=== PATIENT | male | born 1970 | race American Indian/Alaskan Native ===

== ENCOUNTER 2018-11-10 09:32 | Inpatient (IN) | payer BC ==
[2018-11-10 10:19] LABS: Basophils # (Auto) 0.1 K/mm3 (0.0-0.1); Basophils % (Auto) 0.6 % (0.0-1.8); Eosinophils # (Auto) 0.1 K/mm3 (0.0-0.4); Eosinophils % (Auto) 0.5 % (0.0-4.3); Hemoglobin 16.4 gm/dl (11.8-15.2); Lymphocytes # (Auto) 2.5 K/mm3 (1.2-5.4); Lymphocytes % (Auto) 21.5 % (13.4-35.0); Mean Corpuscular HGB Conc 34 % (32-34); Mean Corpuscular Volume 100 fl (84-94); Monocytes # (Auto) 0.5 K/mm3 (0.0-0.8); Red Blood Count 4.79 M/mm3 (3.65-5.03); Red Cell Distribution Width 14.1 % (13.2-15.2)
[2018-11-10 10:30] LABS: INR 0.98 (0.87-1.13); Partial Thromboplastin Time 28.2 Sec. (24.2-36.6)
[2018-11-10 10:40] LABS: BUN/Creatinine Ratio 8; Blood Urea Nitrogen 12 mg/dL (9-20); Calcium 10.1 mg/dL (8.4-10.2); Hemolysis Index 2
--- NOTE | 2018-11-10 11:24 | Emergency Department Report ---
HPI - General Chief Complaint: Neuro Symptoms/Deficit Time Seen by Provider: 11/10/18 11:13 - HPI HPI: Room 2 The patient is a 48-year-old male presenting with a chief complaint of left upper extremity weakness. Patient states he developed weakness in the left upper extremity yesterday morning at 06:00. The patient states he had awakened and was preparing to go to work when he noticed suddenly he had difficulty gripping things with his left hand. The patient states this weakness has been present since yesterday 06:00. The patient states his boss told him that his speech sounded funny however the patient did not notice any difference in the p atient's states his speech has been normal. Patient denies weakness or paresthesias elsewhere. Patient denies headache. Patient denies any recent trauma. Patient denies dysphagia. The patient has a history of hypertension but has not been on medication for the past 10 months ED Past Medical Hx - Past Medical History Previous Medical History?: Yes Hx Hypertension: Yes - Surgical History Past Surgical History?: No - Family History Family history: no significant - Social History Smoking Status: Current Every Day Smoker (1/2 pack per day) Substance Use Type: Alcohol (occasional), Marijuana ED Review of Systems ROS: Stated complaint: LT HAND SWELLING Other details as noted in HPI Constitutional: no symptoms reported Eyes: denies: eye pain ENT: denies: throat pain Respiratory: no symptoms reported Cardiovascular: denies: chest pain Endocrine: no symptoms reported Gastrointestinal: denies: abdominal pain Genitourinary: denies: dysuria Musculoskeletal: denies: back pain Neurological: weakness, paresthesias. denies: headache Physical Exam - Physical Exam Vital Signs: Vital Signs 11/10/18 11/10/18 09:36 11:06 Temperature 97.8 F 98.6 F Pulse Rate 92 H 78 Respiratory 18 20 Rate Blood Pressure 213/152 Blood Pressure 189/143 [Right] O2 Sat by Pulse 98 100 Oximetry Physical Exam: GENERAL: The patient is well-developed well-nourished male lying on stretcher not appearing to be in acute distress. [] HEENT: Normocephalic. Atraumatic. Extraocular motions are intact. Patient has moist mucous membranes. NECK: Supple. Trachea midline CHEST/LUNGS: Clear to auscultation. There is no respiratory distress noted. HEART/CARDIOVASCULAR: Regular. There is no tachycardia. There is no gallop rub or murmur. ABDOMEN: Abdomen is soft, nontender. Patient has normal bowel sounds. There is no abdominal distention. SKIN: There is no rash. There is no edema. There is no diaphoresis. NEURO: The patient is awake, alert, and oriented. The patient is cooperative. Cranial nerves II through XII grossly intact. Right weight calculator is 5+/5, left weight calculator 2+/5. The patient has normal speech. The patient is able to hold the right leg at 30 for 5 seconds count. The patient's left leg begins to drift slightly before 5 seconds but does not hit the bed MUSCULOSKELETAL: There is no evidence of acute injury. NIHSS= 2 LOC a. Alert= 0 Not alert but arousable to minor stimuli=1 Not alert requires repeated or strong stimuli to move= 2 Responds only reflex motor or unresponsive=3 b. asks month and age answers both correctly= 0 answers one correctly= 1 answers neither correctly= 2 Best Gaze normal= 0 abnormal in one or both but forced deviation or total paresis absent= 1 forced deviation or total gaze paresis= 2 Visual no visual loss= 0 partial hemianopia= 1 complete hemianopia= 2 bilateral hemianopia= 3 Facial Palsy normal= 0 minor paralysis= 1 partial paralysis= 2 complete paralysis= 3 Motor Arm no drift= 0 drift before 10 secs but doesnt hit bed= 1 some effort against gravity= 2 no effort against gravity= 3 no movement= 4 Motor leg no drift= 0 (+)drift before 5 secs but doesnt hit bed= 1 drifts to bed before 5 secs= 2 no effort against gravity= 3 no movement= 4 Limb ataxia absent=0 present in one limb= 1 present in two limbs= 2 Sensory normal= 0 (+)mild sensory loss= 1 severe (unaware of being touched)= 2 Best language mild/some loss of fluency= 1 severe= 2 mute= 3 Dysarthria normal= 0 slurs some words= 1 severe/unintelligible= 2 Extinction and Inattention no abnormality= 0 visual, tactile, auditory or personal inattention= 1 profound (doesnt recognize own hand or orients to only one side= 2 ED Course Vital Signs 11/10/18 11/10/18 09:36 11:06 Temperature 97.8 F 98.6 F Pulse Rate 92 H 78 Respiratory 18 20 Rate Blood Pressure 213/152 Blood Pressure 189/143 [Right] O2 Sat by Pulse 98 100 Oximetry ED Medical Decision Making - Lab Data Result diagrams: 11/10/18 09:48 11/10/18 09:48 Laboratory Tests 11/10/18 11/10/18 11/10/18 09:48 09:48 09:48 WBC 11.5 H RBC 4.79 Hgb 16.4 H Hct 48.0 H MCV 100 H MCH 34 H MCHC 34 RDW 14.1 Lymph % (Auto) 21.5 [place] % (Auto) 4.0 Eos % (Auto) 0.5 Baso % (Auto) 0.6 Lymph # 2.5 [place] # 0.5 Eos # 0.1 Baso # 0.1 Seg Neutrophils % 73.4 H Seg Neutrophils # 8.5 H PT 12.7 INR 0.98 APTT 28.2 Thrombin Time Sodium 142 Potassium 3.4 L Chloride 101.9 Carbon Dioxide 26 Anion Gap 18 BUN 12 Creatinine 1.5 Estimated GFR 60 BUN/Creatinine Ratio 8 Glucose 107 H POC Glucose Calcium 10.1 Troponin T < 0.010 11/10/18 11/10/18 09:48 11:23 WBC RBC Hgb Hct MCV MCH MCHC RDW Lymph % (Auto) [place] % (Auto) Eos % (Auto) Baso % (Auto) Lymph # [place] # Eos # Baso # Seg Neutrophils % Seg Neutrophils # PT INR APTT Thrombin Time 17.1 Sodium Potassium Chloride Carbon Dioxide Anion Gap BUN Creatinine Estimated GFR BUN/Creatinine Ratio Glucose POC Glucose 100 Calcium Troponin T - EKG Data -: EKG Interpreted by Co EKG shows normal: sinus rhythm Rate: normal - EKG Data When compared to previous EKG there are: previous EKG unavailable Interpretation: nonspecific ST-T wave fabian, LVH - Radiology Data Radiology results: report reviewed (CT head), image reviewed (CT head) Findings [facility] [address] [place] [address] Cat Scan Report Signed Patient: AUBREY WEINER MR#: [id number] : 1970 Acct:[id number] Age/Sex: 48 / M ADM Date: 11/10/18 Loc: ED Attending Dr: Ordering Physician: ESTHER KEMP MD Date of Service: 11/10/18 Procedure(s): CT head/brain wo con Accession Number(s): [id number] cc: ESTHER KEMP MD CT head without contrast Clinical history: Left hand numbness, hypertension FINDINGS: No previous exams available for comparison. There are old lacunar infarcts involving basal ganglia. Additionally, there is moderate cerebral white matter disease most consistent with microvascular angiopathy. The findings are also most notable along the ganglia capsular regions. The findings are greater than expected for age. There is no clear CT evidence of acute intracranial hemorrhage or significant mass effect. The ventricular system is within normal limits in size and configuration. The visualized nasal sinuses are clear. All CT scans at this location are performed using the CT dose reduction for GeneCapture by means of automated exposure control. 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 There is no CT evidence of acute intracranial hemorrhage. Signer Name: Noe Torres MD Signed: 11/10/2018 11:19 AM Workstation Name: [id number] Transcribed By: MR Dictated By: Noe Torres MD Electronically Authenticated By: Noe Torres MD Signed Date/Time: 11/10/18 1119 DD/ 1115 TD/TT: - Differential Diagnosis CVA, hypertensive urgency Critical care attestation.: If time is entered above; I have spent that time in minutes in the direct care of this critically ill patient, excluding procedure time. ED Disposition Clinical Impression: CVA (cerebral vascular accident) Disposition: DC-[id number] OP ADMIT IP TO THIS HOSP Is pt being admited?: Yes Does the pt Need Aspirin: Yes Condition: Fair Time of Disposition: 11:44 (hospitalist paged (Dr Brady))
--- NOTE | 2018-11-10 11:24 | Cat Scan Report ---
CT head without contrast Clinical history: Left hand numbness, hypertension FINDINGS: No previous exams available for comparison. There are old lacunar infarcts involving basal ganglia. Additionally, there is moderate cerebral white matter disease most consistent with microvasc ular angiopathy. The findings are also most notable along the ganglia capsular regions. The findings are greater than expected for age. There is no clear CT evidence of acute intracranial hemorrhage or significant mass effect. The ventricular system is within normal limits in size and configuration. The visualized nasal sinuse s are clear. All CT scans at this location are performed using the CT dose reduction for ALARA by linh ns of automated exposure control. 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 There is no CT evidence of acute intracranial hemorrhage. Signer Name: Noe Torres MD Signed: 11/10/2018 11:19 AM Workstation Name: [id number]
[2018-11-10] MEDS ORDERED: ASPIRIN PO ONE (11:31)
[2018-11-10 12:06] LABS: Platelet Count 213 K/mm3 (140-440)
[2018-11-10] MEDS ORDERED: APRESOLINE IV ONE ×2 (14:03→15:08)
[2018-11-10] MEDS ORDERED: APRESOLINE ONE ×2 (14:10→15:05)
[2018-11-10] MEDS: CARDENE 50 MG in NACL 0.9% 250ML 230 ML IV SCH (16:15)
[2018-11-10] MEDS ORDERED: ZOFRAN IV PRN ×3 (16:18→23:18)
[2018-11-10] MEDS ORDERED: DILAUDID IV PRN (16:18)
[2018-11-10] MEDS ORDERED: TYLENOL PO PRN ×3 (16:18→23:18)
[2018-11-10] MEDS ORDERED: SODIUM CHLORIDE FLUSH SYRINGE 10 ML IV PRN ×3 (16:18→23:18)
[2018-11-10] MEDS ORDERED: PERCOCET 5/325 PO PRN (16:18)
[2018-11-10] MEDS ORDERED: REGLAN PO PRN (16:23)
[2018-11-10] MEDS ORDERED: DULCOLAX PR PRN (16:23)
[2018-11-10] MEDS ORDERED: PHENERGAN PR PRN (16:23)
[2018-11-10] MEDS ORDERED: MILK OF MAGNESIA PO PRN (16:23)
--- NOTE | 2018-11-10 18:15 | Consultation ---
History of Present Illness Consult date: 11/10/18 Chief complaint: left arm weak History of present illness: This is a 48 YO M, non compliant with medications who presented to the ED with > 24 hours of left arm weakn and numbness. PT is left handed. Says he has htn but does not take meds. No aspirin daily. Also noted A1C is elevated on labs. Denied neck pain...No trauma. Past History Past Medical History: diabetes, hypertension Past Surgical History: No surgical history Social history: Family history: hypertension Medications and Allergies Allergies Allergy/AdvReac Type Severity Reaction Status Date / Time No Known Allergies Allergy Unverified 11/10/18 09:33 Home Medications Medication Instructions Recorded Confirmed Last Taken Type No Known Home Medications [No 11/10/18 11/10/18 Unknown History Reported Home Medications] Active Meds: Active Medications Acetaminophen (Tylenol) 650 mg PO Q4H PRN PRN Reason: Pain MILD(1-3)/Fever >100.5/BUSBY Acetaminophen (Tylenol) 650 mg PO Q4H PRN PRN Reason: Pain, Mild (1-3) Amlodipine Besylate (Norvasc) 10 mg PO QDAY ALIDA Atorvastatin Calcium (Lipitor) 40 mg PO QHS ALIDA Bisacodyl (Dulcolax) 10 mg WI QDAY PRN PRN Reason: Constipation Carvedilol (Coreg) 6.25 mg PO BID ALIDA Famotidine (Pepcid) 20 mg PO BID ALIDA Heparin Sodium (Porcine) (Heparin) 5,000 unit SUB-Q Q12HR ALIDA Hydromorphone HCl (Dilaudid) 0.5 mg IV Q3H PRN PRN Reason: Pain , Severe (7-10) Nicardipine HCl 50 mg/ Sodium (Chloride) 250 mls @ 25 mls/hr IV TITR ALIDA; Protocol Last Admin: 11/10/18 16:15 Dose: 5 mg/hr, 25 mls/hr Documented by: Losartan Potassium (Cozaar) 100 mg PO QDAY ALIDA Magnesium Hydroxide (Milk Of Magnesia) 30 ml PO Q4H PRN PRN Reason: Constipation Metoclopramide HCl (Reglan) 10 mg PO Q6H PRN PRN Reason: Nausea And Vomiting Ondansetron HCl (Zofran) 4 mg IV Q8H PRN PRN Reason: Nausea And Vomiting Ondansetron HCl (Zofran) 4 mg IV Q8H PRN PRN Reason: Nausea And Vomiting Oxycodone/Acetaminophen (Percocet 5/325) 1 tab PO Q6H PRN PRN Reason: Pain, Moderate (4-6) Promethazine HCl (Phenergan) 25 mg WI Q6H PRN PRN Reason: Nausea And Vomiting Sodium Chloride (Sodium Chloride Flush Syringe 10 Ml) 10 ml IV BID ALIDA Sodium Chloride (Sodium Chloride Flush Syringe 10 Ml) 10 ml IV PRN PRN PRN Reason: LINE FLUSH Sodium Chloride (Sodium Chloride Flush Syringe 10 Ml) 10 ml IV PRN PRN PRN Reason: LINE FLUSH Review of Systems Neurological: weakness, numbness Physical Examination - Vital Signs Vital Signs: Vital Signs Temp Pulse Resp BP Pulse Ox 97.8 F 92 H 18 213/152 98 11/10/18 09:36 11/10/18 09:36 11/10/18 09:36 11/10/18 09:36 11/10/18 09:36 - Constitutional General appearance: comfortable - EENT EENT: Present: PERRL, mucous membranes moist - Respiratory Respiratory: Present: lungs clear - Cardiovascular Cardiovascular: Present: regular rate - Gastrointestinal Gastrointestinal: Present: normoactive bowel sounds - Integumentary Integumentary: Present: normal - Neurologic Cranial nerve examination: PERRL, EOMI, V1/V2/V3 grossly intact, face symmetric, tongue midline Speech examination: intact Sensorimotor examination: intact Motor examination - right side: 5/5: biceps, triceps, wrist flexion, wrist extension, vfx artist, hip flexors, knee extensors, dorsiflexion, toe extension (EHL), plantarflexion Motor examination - left side: 1/5: toe extension (EHL), 4/5: biceps, triceps, wrist flexion, wrist extension, vfx artist, 5/5: hip flexors, knee extensors, dorsiflexion, plantarflexion Detailed sensory examination: intact Reflexes: 1+: ankle, bicep, knee, tricep - Psychiatric Psychiatric: Present: mood/affect appropriate Results - Laboratory Findings CBC and BMP: 11/10/18 09:48 11/10/18 09:48 Abnormal Lab Findings: Abnormal Labs 11/10/18 11/10/18 11/10/18 09:48 09:48 09:48 WBC 11.5 H Hgb 16.4 H Hct 48.0 H MCV 100 H MCH 34 H Seg Neutrophils % 73.4 H Seg Neutrophils # 8.5 H Potassium 3.4 L Glucose 107 H Hemoglobin A1c 6.6 H - Diagnostic Findings Additional findings: MRI pending Assessment and Plan This is a 48 YO M with risk factors for stroke who presented with > 24 hours of left UE weakness and numbness. Recommend: MRI/A, echo, carotids, lipids, A1C elevated, will need to see ems educator aspirin and statin, VTE prophylaxis BP control PT/OT/ST Continue care for all medical issues as you are doing Tobacco cessation POC discussed with pt in detail. If MRI Brain is negative, consider MRI cervical. Pt will need to be pretreated with Ativan.
[2018-11-10] MEDS ORDERED: COZAAR ONE (18:17)
[2018-11-10] MEDS ORDERED: NORVASC ONE (18:17)
[2018-11-10] MEDS: NORVASC PO SCH (18:18)
[2018-11-10] MEDS: COZAAR PO SCH (18:18)
[2018-11-10] MEDS: PEPCID PO SCH (21:30)
[2018-11-10] MEDS: HEPARIN SUB-Q SCH (21:31)
[2018-11-10] MEDS ORDERED: COREG PO SCH (22:00)
[2018-11-10] MEDS: SODIUM CHLORIDE FLUSH SYRINGE 10 ML IV SCH (22:00)
[2018-11-10] MEDS ORDERED: SODIUM CHLORIDE FLUSH SYRINGE 10 ML INJ PRN (23:24)
[2018-11-10] MEDS ORDERED: K-DUR PO ONE (23:40)
[2018-11-10] MEDS ORDERED: NACL 0.45% 1000 ML 1,000 ML IV SCH (23:45)
--- NOTE | 2018-11-11 01:56 | History and Physical Report ---
CHIEF COMPLAINT: Left upper extremity weakness since morning 6:00 a.m. HISTORY OF PRESENT ILLNESS: A 48-year-old male with history of hypertension, noncompliant with medications, comes in for left upper extremity weakness, especially the left hand vice president sales since a.m. The weakness has been the same until 11:00. The patient is able to walk. No seizures. Sudden onset of left upper extremity weakness. The patient also has slurred speech. The patient denies weakness in the lower extremity. This is the first episode. Very noncompliant with blood pressure medication. PAST MEDICAL HISTORY: Hypertension. FAMILY HISTORY: Hypertension. SURGICAL HISTORY: None. SOCIAL HISTORY: He smokes about half a pack a day. Alcohol occasionally. Marijuana occasionally. REVIEW OF SYSTEMS: Significant for left upper extremity weakness and slurred speech. Otherwise, review of systems negative. No chest pain. PHYSICAL EXAMINATION: GENERAL: Middle-aged male, cooperative during examination. VITAL SIGNS: Blood pressure 213/152, temperature 97.8, pulse is 92, respirations 18. HEENT: Unremarkable. No facial droop. NECK: Supple, no lymphadenopathy. No carotid artery bruit. LUNGS: Clear to auscultation and percussion. Good air entry. CARDIOVASCULAR: S1, S2 heard. No gallop, no murmur, no rub. Apical impulse in left fifth intercostal space and midclavicular line. ABDOMEN: Soft and benign. No hepatosplenomegaly, no guarding, no rigidity. Hernial orifices are normal. EXTREMITIES: Left upper extremity vice president sales is weak, able to lift his arm, 4/5 power in the left upper extremity. Power is 5/5 in left lower extremity. Power is normal in the right upper and right lower extremity. Reflexes are brisk in the left upper extremity and left lower extremity. Cranial nerves are normal. Sensory system is normal. SKIN: Normal. LABORATORY DATA: Significant for white count of 11,500, H and H are 16.4 and 48.0. Electrolytes are normal. Potassium is 3.4 low, hemoglobin A1c is 6.6. Head CTs, no acute findings. 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 There is no CT evidence of acute intracranial hemorrhage. EKG shows normal sinus rhythm, LVH by voltage criteria. Heart rate of 78 per minute. T-wave inversions in lead I and lead II and aVL and also V4, V5, V6. ASSESSMENT AND PLAN: 1. Hypertensive emergency. The patient was given hydralazine IV multiple times, at least 3 times. There is no response. The patient was started on Cardene drip. The patient was also initiated on hydralazine and Coreg at the same time so that this can be transitioned to oral medications. 2. Acute cerebrovascular accident with left upper extremity weakness. The patient is out of TPA window. Stroke workup initiated. Neurology consult initiated. MRI/MRA, echocardiogram and carotid duplex scan ordered. 3. Hypokalemia, supplemented. 4. Hyperlipidemia -- Statins initiated. 5. Deep venous thrombosis prophylaxis, Lovenox 40 mg subcutaneous daily and gastrointestinal prophylaxis. In summary, the patient has hypertensive emergency, on Cardene drip; acute cerebrovascular accident; hyperlipidemia; hypokalemia. Also, borderline type 2 diabetes of which the patient is not aware. Primary team to inform the patient about the hemoglobin A1c of 6.6 and the patient initiated on metformin 500 b.i.d. JOB# [id number] SRINIVAS/MAGDALENA CONNER
[2018-11-11 04:55] LABS: Basophils # (Auto) 0.1 K/mm3 (0.0-0.1); Basophils % (Auto) 0.6 % (0.0-1.8); Eosinophils # (Auto) 0.2 K/mm3 (0.0-0.4); Eosinophils % (Auto) 1.3 % (0.0-4.3); Hematocrit 48.7 % (35.5-45.6); Hemoglobin 16.5 gm/dl (11.8-15.2); Lymphocytes # (Auto) 3.2 K/mm3 (1.2-5.4); Lymphocytes % (Auto) 25.7 % (13.4-35.0); Mean Corpuscular HGB Conc 34 % (32-34); Mean Corpuscular Volume 101 fl (84-94); Monocytes # (Auto) 0.9 K/mm3 (0.0-0.8); Platelet Count 214 K/mm3 (140-440); Red Blood Count 4.84 M/mm3 (3.65-5.03); Red Cell Distribution Width 14.6 % (13.2-15.2)
[2018-11-11] MEDS: CARDENE 50 MG in NACL 0.9% 250ML 230 ML IV SCH (05:39)
[2018-11-11] MEDS ORDERED: K-DUR PO ONE (06:00)
[2018-11-11 06:07] LABS: Alanine Aminotransferase 14 units/L (7-56); Albumin 4.4 g/dL (3.9-5); BUN/Creatinine Ratio 13; Blood Urea Nitrogen 15 mg/dL (9-20); Calcium 9.8 mg/dL (8.4-10.2); HDL Cholesterol 57 mg/dL (40-59); Hemolysis Index 7; LDL Cholesterol,Direct 114 mg/dL (50-130)
[2018-11-11] MEDS: HumaLOG SUB-Q SCH ×4 (08:13→21:06)
--- NOTE | 2018-11-11 09:28 | Magnetic Resonance Report ---
MRI BRAIN 11/11/2018 INDICATION / CLINICAL INFORMATION: Left-sided weakness. TECHNIQUE: Multiplanar, multisequence MR images of the brain were obtained. COMPARISON: None available. FINDINGS: BRAIN / INTRACRANIAL CONTENTS: Unenhanced MR images of the brain demonstrate a 1.2 cm area of restric brina diffusion in the right cronin radiata, consistent with acute subcortical ischemic change. No othe r areas of acute ischemic change are noted. Extensive chronic periventricular and deep white matter T2 weighted signal changes are present, consi stent with prominent chronic small vessel ischemic change, although the differential diagnosis could include demyelination in the proper clinical circumstances. There is no evidence of acute hemorrhage. There is no evidence of mass. There are no abnormal extra-a xial fluid collections. EXTRACRANIAL: Unremarkable CRANIOCERVICAL JUNCTION: No significant abnormality. VASCULAR FLOW-VOIDS: No significant abnormality. IMPRESSION: 1. Acute right subcortical infarct in the centrum semiovale as described above. 2. Extensive chronic-appearing white matter T2 weighted signal change. 3. No MR evidence of acute hemorrhage. Signer Name: Yonas Oliva MD Signed: 11/11/2018 9:23 AM Workstation Name: [id number]
--- NOTE | 2018-11-11 09:29 | Magnetic Resonance Report ---
MRA HEAD WITHOUT CONTRAST HISTORY: Left-sided weakness, cerebrovascular accident. COMPARISON: None. TECHNIQUE: Routine MRA of the head is performed. 3-D/MIP reformats postprocessed. CONTRAST: None. FINDINGS: Intracranial vertebral arteries: No significant abnormality. Basilar artery: No significant abnormality. Posterior cerebral arteries: No significant abnormality. Intracranial internal carotid arteries: No significant abnormality. Anterior cerebral arteries: No significant abnormality Middle cerebral arteries: No significant abnormality. Additional findings: None. IMPRESSION: 1. The MRA of the head is unremarkable. Signer Name: Noe Torres MD Signed: 11/11/2018 9:25 AM Workstation Name: [id number]
[2018-11-11] MEDS: COZAAR PO SCH (09:37)
[2018-11-11] MEDS: PEPCID PO SCH ×2 (09:37→21:05)
[2018-11-11] MEDS: GLUCOPHAGE PO SCH ×2 (09:37→17:30)
[2018-11-11] MEDS: NORVASC PO SCH (09:37)
[2018-11-11] MEDS: COREG PO SCH ×2 (09:37→21:05)
[2018-11-11] MEDS: HEPARIN SUB-Q SCH ×2 (09:37→21:05)
[2018-11-11] MEDS ORDERED: SODIUM CHLORIDE FLUSH SYRINGE 10 ML IV SCH (10:00)
--- NOTE | 2018-11-11 11:18 | Progress Note ---
Assessment and Plan Assessment and plan: --Hypertensive emergency; present on admission On Cardene drip, blood pressure is reasonably controlled, emergency room antihypertensives When necessary hydralazine, titrate and DC Cardene drip --Acute CVA, left upper extremity weakness; Not a candidate for TPA, Aspirin , statin physical therapy occupational therapy speech therapy Rehabilitation, neurology following --Hypokalemia; Replace per protocol,monitor levels --Dyslipidemia; lipid-lowering medication, low-cholesterol diet --Ongoing tobacco use; smoking cessation counseling, advised nicotine patch --DVT prophylaxis; Lovenox Monitor closely and adjust management as needed The high probability of a clinically significant, sudden or life threatening deterioration of the [neurology] system(s) required my full and direct attention, intervention and personal management. The aggregate critical care time was [32] minutes. This time is in addition to time spent performing reported procedures but includes the following: [x] Data Review and interpretation [x] Patient assessment and monitoring of vital signs [x] Documentation [x] Medication orders and management Patient is stable to be transferred out of ICU Possible discharge in 1-2 days if stable Plan of care reviewed with the patient and his nurse History Interval history: Patient seen and examined medical records reviewed Admitted with a CVA, not a candidate for TPA, has left upper extremity weakness Hospitalist Physical - Constitutional Vitals: Temp Pulse Resp BP Pulse Ox 98.3 F 92 H 18 149/94 97 11/11/18 08:00 11/11/18 10:00 11/11/18 10:00 11/11/18 10:00 11/11/18 10:00 General appearance: Present: no acute distress, well-nourished - EENT Eyes: Present: PERRL, EOM intact - Neck Neck: Present: supple, normal ROM - Respiratory Respiratory effort: normal Respiratory: bilateral: diminished, negative: rales, rhonchi, wheezing - Cardiovascular Rhythm: regular Heart Sounds: Present: S1 & S2 - Extremities Extremities: no ischemia, No edema - Abdominal General gastrointestinal: soft, non-tender, non-distended, normal bowel sounds - Integumentary Integumentary: Present: clear, warm - Psychiatric Psychiatric: appropriate mood/affect, cooperative - Neurologic Neurologic: other (left upper extremity weakness, sensitivity normal, motor power 4-5 / 5) Results - Labs CBC & Chem 7: 11/11/18 04:09 11/11/18 04:09 Labs: Laboratory Last Values WBC 12.4 K/mm3 (4.5-11.0) H 11/11/18 04:09 RBC 4.84 M/mm3 (3.65-5.03) 11/11/18 04:09 Hgb 16.5 gm/dl (11.8-15.2) H 11/11/18 04:09 Hct 48.7 % (35.5-45.6) H 11/11/18 04:09 MCV 101 fl (84-94) H 11/11/18 04:09 MCH 34 pg (28-32) H 11/11/18 04:09 MCHC 34 % (32-34) 11/11/18 04:09 RDW 14.6 % (13.2-15.2) 11/11/18 04:09 Plt Count 214 K/mm3 (140-440) 11/11/18 04:09 Lymph % (Auto) 25.7 % (13.4-35.0) 11/11/18 04:09 [place] % (Auto) 7.0 % (0.0-7.3) 11/11/18 04:09 Eos % (Auto) 1.3 % (0.0-4.3) 11/11/18 04:09 Baso % (Auto) 0.6 % (0.0-1.8) 11/11/18 04:09 Lymph # 3.2 K/mm3 (1.2-5.4) 11/11/18 04:09 [place] # 0.9 K/mm3 (0.0-0.8) H 11/11/18 04:09 Eos # 0.2 K/mm3 (0.0-0.4) 11/11/18 04:09 Baso # 0.1 K/mm3 (0.0-0.1) 11/11/18 04:09 Seg Neutrophils % 65.4 % (40.0-70.0) 11/11/18 04:09 Seg Neutrophils # 8.1 K/mm3 (1.8-7.7) H 11/11/18 04:09 PT 12.7 Sec. (12.2-14.9) 11/10/18 09:48 INR 0.98 (0.87-1.13) 11/10/18 09:48 APTT 28.2 Sec. (24.2-36.6) 11/10/18 09:48 17.1 Sec. (15.1-19.6) 11/10/18 09:48 Sodium 141 mmol/L (137-145) 11/11/18 04:09 Potassium 3.4 mmol/L (3.6-5.0) L 11/11/18 04:09 Chloride 103.8 mmol/L (98-107) 11/11/18 04:09 Carbon Dioxide 24 mmol/L (22-30) 11/11/18 04:09 17 mmol/L 11/11/18 04:09 BUN 15 mg/dL (9-20) 11/11/18 04:09 1.2 mg/dL (0.8-1.5) 11/11/18 04:09 Estimated GFR > 60 ml/min 11/11/18 04:09 13 % 11/11/18 04:09 Glucose 101 mg/dL (75-100) H 11/11/18 04:09 POC Glucose 91 (70-105) 11/11/18 08:18 6.6 % (4-6) H 11/10/18 09:48 Calcium 9.8 mg/dL (8.4-10.2) 11/11/18 04:09 0.90 mg/dL (0.1-1.2) 11/11/18 04:09 AST 24 units/L (5-40) 11/11/18 04:09 ALT 14 units/L (7-56) 11/11/18 04:09 109 units/L (35-129) 11/11/18 04:09 < 0.010 ng/mL (0.00-0.029) 11/10/18 09:48 8.0 g/dL (6.3-8.2) 11/11/18 04:09 4.4 g/dL (3.9-5) 11/11/18 04:09 1.2 % 11/11/18 04:09 Triglycerides 73 mg/dL (2-149) 11/11/18 04:09 Cholesterol 177 mg/dL (50-199) 11/11/18 04:09 114 mg/dL (50-130) 11/11/18 04:09 57 mg/dL (40-59) 11/11/18 04:09 3.10 % 11/11/18 04:09 Active Medications - Current Medications Current Medications: Generic Name Dose Route Start Last Admin Trade Name Freq PRN Reason Stop Dose Admin Acetaminophen 650 mg 11/10/18 16:23 Tylenol PO Q4H PRN Pain, Mild (1-3) Amlodipine Besylate 10 mg 11/10/18 17:00 11/11/18 09:37 Norvasc PO 10 mg QDAY ALIDA Administration Atorvastatin Calcium 40 mg 11/10/18 22:00 11/10/18 21:30 Lipitor PO 40 mg QHS ALIDA Administration Bisacodyl 10 mg 11/10/18 16:23 Dulcolax IN QDAY PRN Constipation Carvedilol 12.5 mg 11/10/18 23:39 11/11/18 09:37 Coreg PO 12.5 mg BID ALIDA Administration Famotidine 20 mg 11/10/18 22:00 11/11/18 09:37 Pepcid PO 20 mg BID ALIDA Administration Heparin Sodium (Porcine) 5,000 unit 11/10/18 22:00 11/11/18 09:37 Heparin SUB-Q 5,000 unit Q12HR [facility] Administration Hydromorphone HCl 0.5 mg 11/10/18 16:18 11/11/18 08:16 Dilaudid IV 0.5 mg Q3H PRN Administration Pain , Severe (7-10) Nicardipine HCl 50 mg/ Sodium 250 mls @ 25 mls/hr 11/10/18 16:00 11/11/18 08:00 Chloride IV 0 mg/hr TITR ALIDA 0 mls/hr Titration Protocol 5 MG/HR Sodium Chloride 1,000 mls @ 75 mls/hr 11/10/18 23:45 Nacl 0.45% 1000 Ml IV DIRECT ALIDA Insulin Human Lispro 0 unit 11/11/18 07:30 11/11/18 08:13 Humalog SUB-Q Not Given ACHS [facility] Protocol Losartan Potassium 100 mg 11/10/18 17:00 11/11/18 09:37 Cozaar PO 100 mg QDAY AL[facility] Administration Magnesium Hydroxide 30 ml 11/10/18 16:23 Milk Of Magnesia PO Q4H PRN Constipation Metformin HCl 500 mg 11/11/18 08:00 11/11/18 09:37 Glucophage PO 500 mg BIDDIAB AL[facility] Administration Metoclopramide HCl 10 mg 11/10/18 16:23 Reglan PO Q6H PRN Nausea And Vomiting Ondansetron HCl 4 mg 11/10/18 16:18 Zofran IV Q8H PRN Nausea And Vomiting Oxycodone/Acetaminophen 1 tab 11/10/18 16:18 Percocet 5/325 PO Q6H PRN Pain, Moderate (4-6) Promethazine HCl 25 mg 11/10/18 16:23 Phenergan IN Q6H PRN Nausea And Vomiting Sodium Chloride 10 ml 11/10/18 22:00 11/10/18 22:00 Sodium Chloride Flush Syringe 10 Ml IV 10 ml BID ALIDA Administration Sodium Chloride 10 ml 11/10/18 16:18 Sodium Chloride Flush Syringe 10 Ml IV PRN PRN LINE FLUSH
[2018-11-11] MEDS: SODIUM CHLORIDE FLUSH SYRINGE 10 ML IV SCH ×2 (11:35→21:06)
[2018-11-11] MEDS: ECOTRIN PO SCH (11:56)
--- NOTE | 2018-11-11 12:30 | Consultation ---
History of Present Illness - Reason for Consult Consult date: 11/11/18 Hypertensive Urgency Requesting physician: ESTHER KEMP - History of Present Illness The patient is a 48-year-old male presenting with a chief complaint of left upper extremity weakness. Patient states he developed weakness in the left upper extremity yesterday morning at 06:00. The patient states he had awakened and was preparing to go to work when he noticed suddenly he had difficulty gripp ing things with his left hand. The patient states this weakness has been present since yesterday 06:00. The patient states his boss told him that his speech sounded funny however the patient did not notice any difference in the patient's states his speech has been normal. Patient denies weakness or paresthesias elsewhere. Patient denies headache. Patient denies any recent trauma. Patient denies dysphagia. The patient has a history of hypertension but has not been on medication for the past 10 months. Patient out of window for TPA. CT showed old inarcts and MRI new infarcts. Neurology consulted. Placed in unit secondary to IV bp medication requirement. No off drip and BP stable on oral medication. Past History Past Medical History: diabetes, hypertension, stroke Past Surgical History: No surgical history Social history: Family history: hypertension Medications and Allergies Allergies Allergy/AdvReac Type Severity Reaction Status Date / Time No Known Allergies Allergy Unverified 11/10/18 09:33 Home Medications Medication Instructions Recorded Confirmed Last Taken Type No Known Home Medications [No 11/10/18 11/10/18 Unknown History Reported Home Medications] Active Meds: Active Medications Acetaminophen (Tylenol) 650 mg PO Q4H PRN PRN Reason: Pain, Mild (1-3) Amlodipine Besylate (Norvasc) 10 mg PO QDAY [facility] Last Admin: 11/11/18 09:37 Dose: 10 mg Documented by: Aspirin (Ecotrin) 325 mg PO QDAY [facility] Last Admin: 11/11/18 11:56 Dose: 325 mg Documented by: Atorvastatin Calcium (Lipitor) 80 mg PO QHS [facility] Bisacodyl (Dulcolax) 10 mg [place] QDAY PRN PRN Reason: Constipation Carvedilol (Coreg) 12.5 mg PO BID [facility] Last Admin: 11/11/18 09:37 Dose: 12.5 mg Documented by: Famotidine (Pepcid) 20 mg PO BID [facility] Last Admin: 11/11/18 09:37 Dose: 20 mg Documented by: Heparin Sodium (Porcine) (Heparin) 5,000 unit SUB-Q Q12HR [facility] Last Admin: 11/11/18 09:37 Dose: 5,000 unit Documented by: Hydromorphone HCl (Dilaudid) 0.5 mg IV Q3H PRN PRN Reason: Pain , Severe (7-10) Last Admin: 11/11/18 08:16 Dose: 0.5 mg Documented by: Nicardipine HCl 50 mg/ Sodium (Chloride) 250 mls @ 25 mls/hr IV TITR [facility]; Protocol Last Titration: 11/11/18 08:00 Dose: 0 mg/hr, 0 mls/hr Documented by: Sodium Chloride (Nacl 0.45% 1000 Ml) 1,000 mls @ 75 mls/hr IV DIRECT ALIDA Insulin Human Lispro (Humalog) 0 unit SUB-Q ACHS [facility]; Protocol Last Admin: 11/11/18 11:35 Dose: Not Given Documented by: Losartan Potassium (Cozaar) 100 mg PO QDAY [facility] Last Admin: 11/11/18 09:37 Dose: 100 mg Documented by: Magnesium Hydroxide (Milk Of Magnesia) 30 ml PO Q4H PRN PRN Reason: Constipation Metformin HCl (Glucophage) 500 mg PO BIDDIAB [facility] Last Admin: 11/11/18 09:37 Dose: 500 mg Documented by: Metoclopramide HCl (Reglan) 10 mg PO Q6H PRN PRN Reason: Nausea And Vomiting Ondansetron HCl (Zofran) 4 mg IV Q8H PRN PRN Reason: Nausea And Vomiting Oxycodone/Acetaminophen (Percocet 5/325) 1 tab PO Q6H PRN PRN Reason: Pain, Moderate (4-6) Promethazine HCl (Phenergan) 25 mg ND Q6H PRN PRN Reason: Nausea And Vomiting Sodium Chloride (Sodium Chloride Flush Syringe 10 Ml) 10 ml IV BID [facility] Last Admin: 11/11/18 11:35 Dose: 10 ml Documented by: Sodium Chloride (Sodium Chloride Flush Syringe 10 Ml) 10 ml IV PRN PRN PRN Reason: LINE FLUSH Review of Systems All systems: negative Exam - Constitutional Vitals: Temp Pulse Resp BP Pulse Ox 98.2 F 73 16 164/114 96 07/18/19 11:30 11/11/18 11:31 11/11/18 11:31 11/11/18 11:31 11/11/18 11:31 General appearance: Present: no acute distress - EENT Eyes: Present: PERRL, EOM intact - Neck Neck: Present: supple, normal ROM - Respiratory Respiratory effort: normal Respiratory: bilateral: CTA - Extremities Extremities: abnormal (unilateral weaknes, general) Results - Labs CBC & Chem 7: 11/11/18 04:09 11/11/18 04:09 Labs: Abnormal lab results 11/10/18 11/11/18 11/11/18 Range/Units 09:48 04:09 04:09 WBC 12.4 H (4.5-11.0) K/mm3 Hgb 16.5 H (11.8-15.2) gm/dl Hct 48.7 H (35.5-45.6) % MCV 101 H (84-94) fl MCH 34 H (28-32) pg [place] # 0.9 H (0.0-0.8) K/mm3 Seg Neutrophils # 8.1 H (1.8-7.7) K/mm3 Potassium 3.4 L (3.6-5.0) mmol/L Glucose 101 H (75-100) mg/dL Hemoglobin A1c 6.6 H (4-6) % Assessment and Plan 48 y/o male with uncontrolled hypertension admitted with hypertensive urgency and stroke like symptoms, found to have acute infarct but out of the window for TPA therapy. 1. Bp controlled now off drip. 2. Stable for transfer out of unit 3. Will add antiplatelet therapy and increase statin to 80mg daily 4. Spoke with [facility] about this.
[2018-11-11] MEDS ORDERED: APRESOLINE IV PRN (15:00)
[2018-11-11] MEDS ORDERED: APRESOLINE PO ONE (17:51)
[2018-11-11] MEDS: APRESOLINE PO SCH (21:06)
[2018-11-11] MEDS ORDERED: APRESOLINE PO SCH (22:00)
[2018-11-12] MEDS: APRESOLINE PO SCH ×2 (05:00→15:00)
[2018-11-12] MEDS: GLUCOPHAGE PO SCH (08:30)
--- NOTE | 2018-11-12 08:47 | Vascular Lab Report ---
BILATERAL CAROTID DOPPLER ULTRASOUND INDICATION : stroke TECHNIQUE: Grayscale and color Doppler imaging performed through the neck. COMPARISON: None FINDINGS: Right: There is mild smooth noncalcified plaque in the carotid bulb.. Peak systolic velocity in the CCA is 120 cm/s with end-diastolic velocity of 27 cm/s. Peak systolic velocity in the proximal ICA i s 70 cm/s with end-diastolic velocity of 24 cm/s. ICA to CCA ratio is less than 2. There is antegrade flow in the ECA and the vertebral artery. Left: There is minimal partially calcified plaque in the carotid bulb.. Peak systolic velocity in the CCA is 83 cm/s with end-diastolic velocity of 23 cm/s. Peak systolic velocity in the proximal ICA is 74 cm/s with end-diastolic velocity of 33 cm/s. ICA to CCA ratio is less than 2. There is antegrade flow in the ECA and the vertebral artery. IMPRESSION: No hemodynamically significant stenosis by NASCET criteria. Signer Name: Basil Medina Jr, MD Signed: 11/12/2018 8:43 AM Workstation Name: [id number]
[2018-11-12] MEDS: ECOTRIN PO SCH (10:19)
[2018-11-12] MEDS: PEPCID PO SCH (10:19)
[2018-11-12] MEDS: NORVASC PO SCH (10:19)
[2018-11-12] MEDS: COREG PO SCH (10:20)
[2018-11-12] MEDS: COZAAR PO SCH (10:20)
[2018-11-12] MEDS: HEPARIN SUB-Q SCH (10:20)
[2018-11-12] MEDS: SODIUM CHLORIDE FLUSH SYRINGE 10 ML IV SCH (10:29)
[2018-11-12] MEDS: HumaLOG SUB-Q SCH ×2 (10:30→15:26)
--- NOTE | 2018-11-12 12:50 | Progress Note ---
Assessment and Plan 48 y/o male with uncontrolled hypertension admitted with hypertensive urgency and stroke like symptoms, found to have acute infarct but out of the window for TPA therapy. 1. Pulm diana stable. No acute issues. Will sign off. Call if questions or concerns. Subjective Date of service: 11/12/18 Interval history: Successful transfer out of unit. no acute pulmonary issues. Objective - Constitutional Vitals: Vital Signs - 12hr 11/12/18 11/12/18 11/12/18 04:24 05:00 07:43 Temperature 98.0 F 98.0 F Pulse Rate 91 H 102 H 84 Respiratory 18 18 Rate Blood Pressure 152/100 155/105 151/104 O2 Sat by Pulse 94 97 Oximetry 11/12/18 11/12/18 10:19 10:20 Temperature Pulse Rate 84 88 Respiratory Rate Blood Pressure 151/104 151/104 O2 Sat by Pulse Oximetry General appearance: Present: no acute distress, well-nourished - EENT Eyes: PERRL, EOM intact ENT: hearing intact - Neck Neck: supple, normal ROM - Respiratory Respiratory effort: normal Respiratory: bilateral: CTA - Breasts Breasts: deferred - Cardiovascular Rhythm: regular - Gastrointestinal General gastrointestinal: Present: soft, non-tender Rectal Exam: deferred - Genitourinary Male genitourinary: deferred - Labs CBC & Chem 7: 11/11/18 04:09 11/11/18 04:09 Medications & Allergies - Medications Allergies/Adverse Reactions: Allergies No Known Allergies Allergy (Unverified 11/10/18 09:33) Home Medications: Home Medications Medication Instructions Recorded Confirmed Last Taken Type No Known Home Medications [No 11/10/18 11/10/18 Unknown History Reported Home Medications] Active Medications: Generic Name Dose Route Start Last Admin Trade Name Freq PRN Reason Stop Dose Admin Acetaminophen 650 mg 11/10/18 16:23 Tylenol PO Q4H PRN Pain, Mild (1-3) Amlodipine Besylate 10 mg 11/10/18 17:00 11/12/18 10:19 Norvasc PO 10 mg QDAY AL[facility] Administration Aspirin 325 mg 11/11/18 12:00 11/12/18 10:19 Ecotrin PO 325 mg QDAY [facility] Administration Atorvastatin Calcium 80 mg 11/11/18 22:00 11/11/18 21:05 Lipitor PO 80 mg QHS [facility] Administration Bisacodyl 10 mg 11/10/18 16:23 Dulcolax [place] QDAY PRN Constipation Carvedilol 12.5 mg 11/10/18 23:39 11/12/18 10:20 Coreg PO 12.5 mg BID [facility] Administration Famotidine 20 mg 11/10/18 22:00 11/12/18 10:19 Pepcid PO 20 mg BID [facility] Administration Heparin Sodium (Porcine) 5,000 unit 11/10/18 22:00 11/12/18 10:20 Heparin SUB-Q 5,000 unit Q12HR [facility] Administration Hydralazine HCl 10 mg 11/11/18 15:00 11/11/18 15:11 Apresoline IV 10 mg Q4H PRN Administration Hypertension Hydralazine HCl 50 mg 11/11/18 22:00 11/12/18 05:00 Apresoline PO 50 mg Q8HR [facility] Administration Hydromorphone HCl 0.5 mg 11/10/18 16:18 11/11/18 08:16 Dilaudid IV 0.5 mg Q3H PRN Administration Pain , Severe (7-10) Insulin Human Lispro 0 unit 11/11/18 07:30 11/12/18 10:30 Humalog SUB-Q Not Given ACHS [facility] Protocol Losartan Potassium 100 mg 11/10/18 17:00 11/12/18 10:20 Cozaar PO 100 mg QDAY [facility] Administration Magnesium Hydroxide 30 ml 11/10/18 16:23 Milk Of Magnesia PO Q4H PRN Constipation Metformin HCl 500 mg 11/11/18 08:00 11/12/18 08:30 Glucophage PO 500 mg BIDDIAB [facility] Administration Metoclopramide HCl 10 mg 11/10/18 16:23 Reglan PO Q6H PRN Nausea And Vomiting Ondansetron HCl 4 mg 11/10/18 16:18 Zofran IV Q8H PRN Nausea And Vomiting Oxycodone/Acetaminophen 1 tab 11/10/18 16:18 Percocet 5/325 PO Q6H PRN Pain, Moderate (4-6) Promethazine HCl 25 mg 11/10/18 16:23 Phenergan [place] Q6H PRN Nausea And Vomiting Sodium Chloride 10 ml 11/10/18 22:00 11/12/18 10:29 Sodium Chloride Flush Syringe 10 Ml IV 10 ml BID ALIDA Administration Sodium Chloride 10 ml 11/10/18 16:18 Sodium Chloride Flush Syringe 10 Ml IV PRN PRN LINE FLUSH
--- NOTE | 2018-11-12 14:08 | Discharge Summary ---
Providers - Providers Date of Admission: 11/10/18 11:45 Date of discharge: 11/12/18 Attending physician: EVERTON NIEVES 11/10/18 16:18 Consult to Physician [CONS] Routine Comment: Consulting Provider: BELIA GUEVARA Physician Instructions: Reason For Exam: cva 11/10/18 16:23 Occupational Therapy Evaluate and Treat [CONS] Routine Comment: Reason For Exam: Neuro deficits Physical Therapy Evaluation and Treat [CONS] Routine Comment: Reason For Exam: Neuro deficits 11/10/18 23:24 Occupational Therapy Evaluate and Treat [CONS] Routine Comment: Reason For Exam: Neuro deficits Physical Therapy Evaluation and Treat [CONS] Routine Comment: Reason For Exam: Neuro deficits 11/11/18 09:27 Consult to Physician [CONS] Routine Comment: Consulting Provider: RAMIREZ HERNANDEZ Physician Instructions: Reason For Exam: icu admission 11/11/18 10:07 Consult to Dietitian/Nutrition [CONS] Routine Physician Instructions: Reason For Exam: stroke and HBA1C = 6.6 Reason for Consult: Diet education [facility] Reason for admission: Left upper extremity weakness Condition: Fair Pertinent studies: CT head; moderate microvascular angiopathy along with old left not infarcts involving the basal ganglia, no acute abnormality Echocardiogram; EF 55-60%, patent foramen ovale MRA brain; unremarkable study MRI brain; acute right subcortical infarct in the Centrum semiovale, extensive chronic-appearing white matter T2 weighted signal change no MR evidence of acute hemorrhage, Carotid Doppler; no hemodynamically significant stenosis Hospital course: 48-year-old male patient with significant history of hypertension noncompliant with medications was admitted through emergency room with left upper extremity weakness of one day duration Patient was not a candidate for TPA, admitted symptomatically managed, had extensive neuro workup as mentioned above Patient was evaluated by cardiology and neurology, Medications were optimized Today patient is comfortable no new complaints vital signs stable physical examination is unremarkable Patient was evaluated by physical therapy occupational therapy Recommended home PT and OT, case management has evaluated the patient and set up home health services Patient is hemodynamically and clinically stable at discharge Discussed echo findings with neurologist.Did not recommended anticoagulation, recommended further evaluation by cardiology and neurology upon discharge as outpatient The patient verbalized understanding Discharge Diagnosis: --Hypertensive emergency; present on admission On Cardene drip, blood pressure is reasonably controlled, emergency room antihypertensives When necessary hydralazine, titrate and DC Cardene drip --Acute CVA, ruled out, possible TIA Not a candidate for TPA, Aspirin , statin physical therapy occupational therapy speech therapy Rehabilitation, neuro workup is negative. Possible TIA --Hypokalemia; Replace per protocol,monitor levels --Dyslipidemia; lipid-lowering medication, low-cholesterol diet --Ongoing tobacco use; smoking cessation counseling, advised nicotine patch --DVT prophylaxis; Lovenox Stable at discharge Disposition: [id number] HOME [facility] Time spent for discharge: 32 min Core Measure Documentation - Palliative Care Palliative Care/ Comfort Measures: Not Applicable - Core Measures Any of the following diagnoses?: stroke - Stroke Discharge Requirements Statin for LDL = or >70 mg/dl on DC: Yes Anticoag for atrial fib/atrial flutter: Not Applicable (no afib/flutter) Antithrombotic for ischemic stroke: Yes Exam - Constitutional Vitals: Temp Pulse Resp BP Pulse Ox 98.0 F 88 18 151/104 97 11/12/18 07:43 11/12/18 10:20 11/12/18 07:43 11/12/18 10:20 11/12/18 07:43 General appearance: Present: no acute distress, well-nourished - EENT Eyes: Present: PERRL, EOM intact - Neck Neck: Present: supple, normal ROM - Respiratory Respiratory effort: normal Respiratory: negative: rales, rhonchi, wheezing - Cardiovascular Rhythm: regular Heart Sounds: Present: S1 & S2 - Extremities Extremities: no ischemia, No edema, abnormal (Minimal weakness Lt UE power 4- 5/5) - Abdominal General gastrointestinal: Present: soft, non-tender, non-distended, normal bowel sounds - Integumentary Integumentary: Present: clear, warm - Musculoskeletal Musculoskeletal: strength equal bilaterally - Psychiatric Psychiatric: appropriate mood/affect, cooperative - Neurologic Neurologic: moves all extremities, other (LtUE weakness) Plan Activity: advance as tolerated Diet: diabetic Follow up with: HUA MORALES MD [Primary Care Provider] - 3-5 Days JUDY PEARSON MD [Staff Physician] - 7 Days Prescriptions: hydrALAZINE [Apresoline TAB] 50 mg PO Q8HR #90 tablet Aspirin EC 325 mg PO QDAY #30 tablet Carvedilol [Coreg] 25 mg PO BID #60 tablet Losartan [Cozaar] 100 mg PO QDAY #30 tablet Nicotine [Habitrol] 21 mg TD DAILY #30 patch AtorvaSTATin [Lipitor] 80 mg PO QHS #30 tablet amLODIPine [Norvasc] 10 mg PO QDAY #30 tablet Famotidine [Pepcid] 20 mg PO DAILY #30 tablet Other Discharge Orders: Occupational Therapy (Amb) Location: None Selected
[2018-11-12 16:20] VITALS: BP 141/75
== END 2018-11-12 17:24 | disposition home health service (06) | DRG 65 ==
LOC: ED 09:32 → 4A 11:45 → CC1 16:24 → 4A 11-11 15:57
PROVIDERS: ADMIT Internal Medicine; ATTEND Internal Medicine
DX: I63.9 Cerebral infarction, unspecified (principal); G81.94 Hemiplegia, unspecified affecting left nondominant side; I16.1 Hypertensive emergency; E87.6 Hypokalemia; I10 Essential (primary) hypertension; E78.5 Hyperlipidemia, unspecified; F17.200 Nicotine dependence, unspecified, uncomplicated; F12.90 Cannabis use, unspecified, uncomplicated; Z71.6 Tobacco abuse counseling; Z72.89 Other problems related to lifestyle; Z82.49 Family history of ischemic heart disease and other diseases of the circulatory system
CPT/HCPCS: 36415; 70450; 70544; 70551; 80048; 80053; 80061; 82962; 83036; 84484; 85025; 85610; 85670; 85730; 93005; 93010; 93306; 93880; 96374; 96376; 99406; G0378; A9270-GY; J0360; J1170; J1644; J7050